=== PATIENT | female | born 1990 | race Caucasian/White ===

== ENCOUNTER 2017-07-21 21:03 | Emergency (ER) | payer OTHER | END 2017-07-22 00:45 | disposition home or self-care (01) | LOC: PHED 21:03 | DX: O26.892 Other specified pregnancy related conditions, second trimester (principal); J11.1 Influenza due to unidentified influenza virus with other respiratory manifestations; R06.2 Wheezing; M47.892 Other spondylosis, cervical region; L94.9 Localized connective tissue disorder, unspecified; Z3A.23 23 weeks gestation of pregnancy | CPT/HCPCS: 71045; 93005; 99284 ==

== ENCOUNTER 2017-11-11 09:41 | Inpatient (IN) | payer OTHER ==
[2017-11-11] VITALS (12 sets, daily range): BP systolic 109–123; BP diastolic 67–83; PULSE 74–100; RESP 16–18; TEMP 98–98.4; O2SAT 95–99
[~2017-11-11 09:41] MED LIST: ALBU6.7H INH; DEXT1CAP5 PO; OSEL75 PO; PREN29TA PO
[2017-11-11] MEDS ORDERED: ceFAZolin 2 GM in NS 100 ML IV SCH (11:30)
[2017-11-11] MEDS ORDERED: CITRIC ACID-SODIUM CITRATE LIQ 30 ML UDC PO SCH (11:30)
[2017-11-11] MEDS ORDERED: LACTATED RINGER'S 1000 ML IV SCH (11:30)
[2017-11-11] MEDS ORDERED: LACTATED RINGER'S 1000 ML IV ONE (11:30)
[2017-11-11] MEDS ORDERED: DEXAMETHASONE SOD PHOS 4 MG/ML VIAL ONE (11:40)
[2017-11-11] MEDS ORDERED: ROPIVACAINE 0.5% PF INJ 30 ML VIAL ONE ×2 (11:40)
[2017-11-11 11:49] LABS: BASOPHIL % 0.4 % (0.0-2.0); EOSINOPHIL % 0.4 % (0.0-4.0); HEMATOCRIT 35.2 % (35.0-46.0); HEMOGLOBIN 11.6 GM/DL (11.6-15.3); LYMPH % 20.8 % (9.0-44.0); LYMPHOCYTE # 1.7 TH/MM3 (1.0-4.8); MEAN CELL VOLUME 83.9 FL (80.0-100.0); MEAN CORPUSCULAR HEMOGLOBIN 27.7 PG (27.0-34.0); MEAN CORPUSCULAR HGB CONC 33.1 % (32.0-36.0); MEAN PLATELET VOLUME 9.9 FL (7.0-11.0); MONO % 6.3 % (0.0-8.0); MONOCYTE # 0.5 TH/MM3 (0-0.9); NEUT % 72.1 % (16.0-70.0); PLATELET COUNT 203 TH/MM3 (150-450); RED BLOOD COUNT 4.19 MIL/MM3 (4.00-5.30); RED CELL DISTRIBUTION WIDTH 14.6 % (11.6-17.2); WHITE BLOOD COUNT 8.3 TH/MM3 (4.0-11.0)
[2017-11-11] MEDS ORDERED: SUCCINYLCHOLINE CHLORIDE 100 MG/5 ML SYRINGE IV PUSH ONE (12:00)
[2017-11-11] MEDS ORDERED: DEXAMETHASONE SOD PHOS 4 MG/ML VIAL IV ONE (12:00)
[2017-11-11] MEDS ORDERED: ceFAZolin INJ 1,000 MG VIAL IV ONE (12:00)
[2017-11-11] MEDS ORDERED: PROPOFOL 200 MG/20 ML AMP IV ONE (12:00)
[2017-11-11] MEDS ORDERED: LIDOCAINE HCL 1% PF 5 ML SYRINGE OTHER ONE (12:00)
[2017-11-11] MEDS ORDERED: ONDANSETRON HCL 4 MG/2 ML VIAL IV ONE (12:00)
[2017-11-11] MEDS ORDERED: OXYTOCIN 10 UNIT/ML AMP IV ONE (12:00)
[2017-11-11] MEDS ORDERED: LACTATED RINGER'S 1000 ML INJ 1,000 ML IV ONE (12:00)
[2017-11-11] MEDS ORDERED: KETOROLAC TROMETHAMINE 30 MG/ML (IVP) VIAL IV PUSH ONE (12:00)
[2017-11-11 12:05] LABS: BACTERIA, URINE OCC /hpf; BILIRUBIN, URINE NEG (NEG); BLOOD, URINE NEG (NEG); GLUCOSE,URINE NEG (NEG); KETONE, URINE NEG (NEG); NITRITE,URINE NEG (NEG); PH, URINE 6.5 (5.0-8.5); URINE COLOR LIGHT-YELLOW (YELLW/STRAW); URINE LEUKOCYTE ESTERASE NEG (NEG)
[2017-11-11] MEDS ORDERED: fentaNYL CITRATE 250 MCG/5 ML AMP ONE (13:51)
[2017-11-11] MEDS ORDERED: ACETAMINOPHEN 1000 MG/100 ML 100 ML IV ONE (13:51)
--- NOTE | 2017-11-11 13:56 | MH ---
cc: Guanako Gonzalez MD DATE OF ADMISSION: 11/11/2017 PREOPERATIVE DIAGNOSIS(ES): 1. Intrauterine at 39+ weeks. 2. Previous section. 3. 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 HISTORY OF PRESENT ILLNESS: Ms. Cunningham is a 27-year-old white female, para 1-0-0-1, whose last menstrual period and dates put her at 39+ weeks. She presents for repeat section. She has been followed by neurology and they have specifically said not to do a spinal anesthesia because of the Arnold-Chiari syndrome. She has been brought in for a repeat section under general anesthesia today. PAST OB HISTORY: She is para 1-0-0-1. She had a with general anesthesia, without any complications. PAST MACHINE TOOL REBUILDER HISTORY: Negative. Her Pap smear in 03/2017 was negative. PAST SURGICAL HISTORY: Remarkable for a section. PAST MEDICAL HISTORY: Remarkable for Arnold-Chiari syndrome. SOCIAL HISTORY: She has never smoked. She is a nondrinker. She is . She does not take drugs. FAMILY HISTORY: Grandfather had oral cancer. Multiple family members had melanoma. ALLERGIES: ASPIRIN. MEDICATIONS: vitamins. REVIEW OF SYSTEMS: No headache, no shortness of breath, no chest pain, pressure. The baby is moving well. Denies any rupture of membranes, bleeding, no regular uterine contractions. PHYSICAL EXAMINATION: GENERAL: Well-developed, well-nourished female, in no acute distress. CHEST: Clear to auscultation. CARDIOVASCULAR: The heart has a regular rate and rhythm without murmur. ABDOMEN: Gravid, nontender. The scar is well healed. PELVIC: The pelvic examination is deferred. EXTREMITIES: No clubbing, cyanosis, or edema. ASSESSMENT AND PLAN: 1. Intrauterine at 39+ weeks. 2. History of previous for repeat now. 3. Arnold-Chiari syndrome without spina bifida. We will go ahead and put her to sleep and have the baby. Her GBS is negative. Her sugar test and all her labs are negative. Her blood type is O positive. Guanako Gonzalez MD RJV/TL , 01:39 PM , 01:55 PM
[2017-11-11] MEDS ORDERED: diphenhydrAMINE HCL 50 MG/ML VIAL IV PUSH PRN (15:15)
[2017-11-11] MEDS ORDERED: OXYTOCIN 30 UNITS-500ML PREMIX 500 ML IV ONE (15:15)
[2017-11-11] MEDS ORDERED: SODIUM CHLORIDE 0.9% FLUSH 10 ML FLUSH IV FLUSH PRN (15:15)
[2017-11-11] MEDS ORDERED: ONDANSETRON ODT 4 MG TAB PO PRN (15:15)
[2017-11-11] MEDS ORDERED: diphenhydrAMINE HCL 25 MG CAP PO PRN (15:15)
[2017-11-11] MEDS ORDERED: NALOXONE HCL 0.4 MG/ML AMP IV PUSH PRN (15:15)
[2017-11-11] MEDS ORDERED: ACETAMINOPHEN 325 MG TAB PO PRN (15:15)
[2017-11-11] MEDS ORDERED: HYDROmorphone HCL PF 2 MG/ML VIAL ONE ×2 (15:17→15:45)
--- NOTE | 2017-11-11 15:26 | PD.OP ---
Operative Report Date of Surgery: November 11, 2017 Preoperative Diagnosis: Postoperative Diagnosis: Procedure: Repeat Low Transverse Section with Bilateral Tubal Ligation Anesthesia: General Surgeon: Guanako Gonzalez MD Immigration Manager(s): Dagmar Chopra Resident Surgeon: Bibiana Sheth MD Operation and Findings: PREOPERATIVE DIAGNOSIS: 1. Intrauterine at 39 weeks gestation. 2. Arnold Chiari Malformation. 3. Desires permanent sterilization. POSTOPERATIVE DIAGNOSIS: 1. Intrauterine at 39 weeks gestation. 2. Arnold Chiari Malformation. 3. Desires permanent sterilization. OPERATION: 1. Repeat low transverse section. 2. Bilateral tubal ligation. ANESTHESIA: General. SURGEON: Guanako Gonzalez MD. COSURGEON: Bibiana Sheth MD R3. FINDINGS: A normal female with APGARS of 8 and 9, weight 3310g. The uterus was normal. The tubes were normal in length and caliber, the ovaries were normal. The cul-de-sac was normal. COMPLICATIONS: None. COUNTS: The counts were correct. ESTIMATED BLOOD LOSS: 600 cc. FLUIDS: Crystalloids. FINDINGS: The patient tolerated the procedure well, went to the Recovery Room in good condition. PROCEDURE: She was taken to the operating room, identified by name band and verbally and given a general anesthetic. She was immediately prepped with Betadyne and draped in the usual sterile manner for a section. A time out was taken and once agreed upon a Pfannenstiel incision was made over the old scar. The incision was taken down to the fascia, the fascia was taken off the rectus muscle by blunt and sharp dissection. The rectus muscles were spread bluntly and the peritoneum was entered under direct vision without difficulty. The incision was extended with care to avoid the urinary bladder. The bladder blade was placed and the bladder flap was created in the usual fashion. A transverse incision along the lower uterine segment was made and bluntly extended. The head was delivered with gentle fundal pressure without difficulty and then the rest of the body was delivered without difficulty. The baby appeared vigorous upon delivery and cord clamping was delayed for 45 seconds. The baby was then handed to the baby nurse. A cord gas was obtained. Cord blood was obtained and the placental was delivered manually. The uterus was curettage twice with the wet lap. The uterine incision was then repaired with the 0 Vicryl in a running fashion, the second layer imbricating the first with excellent results. Hemostasis was achieved with several figure of eight sutures and Manuel. Intercede was also applied to prevent adhesions. Hemostasis was excellent. Attention was then turned to the tubal ligation. The left fallopian tube was gasped with a Mya and a small incision was made in the mesosalpinx and a portion of the tube was tied off with zero chromic catgut and a small piece of tube was removed and sent for pathologic evaluation. This was repeated on the contralateral side. The cul-de-sac was irrigated and cleaned of blood and debris and the uterus was delivered back into the abdomen. All incisions and pedicles were then inspected and were hemostatic. The rectus muscle was reapproximated with 0 Vicryl in a running fashion. The fascia was repaired with 0 Vicryl in a running fashion and the subcutaneous tissue was irrigated. The skin was repaired with 4-0 Monocryl in a subcuticular manner. The incision was covered with a pressure dressing. The patient tolerated the procedure well and went to the recovery room in good condition. All counts were correct. Bibiana Sheth MD R3 November 11, 2017 15:26
[2017-11-11] MEDS ORDERED: MEPERIDINE HCL 50 MG/ML VIAL ONE (16:52)
[2017-11-11] MEDS ORDERED: OXYTOCIN 30 UNITS-500ML PREMIX 500 ML IV PRN (20:15)
[2017-11-11] MEDS ORDERED: SODIUM CHLORIDE 0.9% FLUSH 10 ML FLUSH IV FLUSH SCH (21:00)
[2017-11-11] MEDS ORDERED: ceFAZolin 2 GM/DEX PREMIX 50 ML IV SCH (22:00)
[2017-11-11] MEDS ORDERED: CEFAZOLIN INJ 2,000 MG in SODIUM CHLORIDE 0.9% INJ 100 ML IV SCH (22:00)
[2017-11-11] MEDS: LACTATED RINGER'S 1000 ML INJ 1,000 ML IV SCH (22:01)
[2017-11-12] VITALS (10 sets, daily range): BP systolic 105–119; BP diastolic 57–73; PULSE 70–88; RESP 16–18; TEMP 98–98.6; O2SAT 97–98
[2017-11-12] MEDS: PCA - TOTAL MG MORPHINE DELIVERED PER SHIFT SCH ×3 (00:20→12:10)
[2017-11-12] MEDS: MORPHINE SULFATE 30 MG/30 ML PCA IV SCH ×2 (00:32→07:03)
[2017-11-12 05:58] LABS: BASOPHIL % 0.3 % (0.0-2.0); EOSINOPHIL % 0.2 % (0.0-4.0); HEMATOCRIT 32.4 % (35.0-46.0); HEMOGLOBIN 10.9 GM/DL (11.6-15.3); LYMPHOCYTE # 2.4 TH/MM3 (1.0-4.8); MEAN CELL VOLUME 82.9 FL (80.0-100.0); MEAN CORPUSCULAR HEMOGLOBIN 27.9 PG (27.0-34.0); MEAN CORPUSCULAR HGB CONC 33.6 % (32.0-36.0); MONO % 7.9 % (0.0-8.0); MONOCYTE # 0.9 TH/MM3 (0-0.9); NEUT % 70.6 % (16.0-70.0); PLATELET COUNT 200 TH/MM3 (150-450); RED BLOOD COUNT 3.91 MIL/MM3 (4.00-5.30); RED CELL DISTRIBUTION WIDTH 14.6 % (11.6-17.2); WHITE BLOOD COUNT 11.3 TH/MM3 (4.0-11.0)
[2017-11-12] MEDS ORDERED: ceFAZolin 2 GM PREMIX 50 ML IV SCH (06:00)
[2017-11-12] MEDS ORDERED: KETOROLAC TROMETHAMINE 30 MG/ML (IVP) VIAL IV PUSH ONE (07:15)
--- NOTE | 2017-11-12 07:29 | HHI.OB ---
Subjective Remarks POD day # 1. No acute issues overnight, vitals are stable, patient remains afebrile. Incision not draining. Decreasing lochia and pain. Patient is ambulating without difficulty and voiding independently. She is feeding the baby via breast. She denies any nausea or vomiting and has a good appetite. Positive flatus/bowel movement. She denies any calf pain, chest pain, or shortness of breath. Objective Vitals/I&O Vital Signs Date Time Temp Pulse Resp B/P (MAP) Pulse Ox O2 Delivery O2 Flow Rate FiO2 11/12/17 07:03 18 11/12/17 06:00 18 11/12/17 05:49 16 11/12/17 04:26 16 11/12/17 04:00 98.0 73 18 119/71 (87) 97 11/12/17 03:00 17 11/12/17 00:44 17 11/12/17 00:32 17 11/12/17 00:20 17 11/12/17 00:00 98.2 70 18 110/69 (83) 98 11/11/17 22:18 18 11/11/17 22:00 18 11/11/17 20:00 98.0 74 18 120/80 (93) 98 11/11/17 17:20 98.4 86 18 121/81 (94) 96 11/11/17 16:40 115/68 (84) 11/11/17 16:40 81 16 97 11/11/17 16:25 76 16 120/70 (87) 96 11/11/17 16:10 99 11/11/17 16:10 81 16 123/83 (96) 11/11/17 15:55 87 16 123/72 (89) 99 11/11/17 15:40 79 17 98 11/11/17 15:40 118/69 (85) 11/11/17 15:16 16 109/67 (81) 11/11/17 15:15 98.4 100 95 11/11/17 12:00 16 Result Diagram: 11/12/17 0551 Objective Remarks GENERAL: Well-nourished, well-developed patient. CARDIOVASCULAR: Regular rate and rhythm without murmurs, gallops, or rubs. RESPIRATORY: Breath sounds equal bilaterally. No accessory muscle use. ABDOMEN/GI: Abdomen soft, non-tender, bowel sounds present. Incision: Clean, dry and intact. Fundus: Firm, non-tender at umbilicus. GENITOURINARY: Light to moderate bleeding. EXTREMITIES: No cyanosis or edema, non-tender, without signs of DVT. Medications and IVs Current Medications Medications (Trade) Dose Ordered Sig/Yusuf Route Start Time Stop Time Status Last Admin Lactated Ringer's 1,000 ml @ 100 mls/hr Q10H IV 11/11/17 20:07 11/12/17 16:06 11/11/17 22:01 Oxytocin 500 ml @ 100 mls/hr UNSCH X1 PRN IV 11/11/17 20:15 11/12/17 20:14 (NS Flush) 2 ml BID IV FLUSH 11/11/17 21:00 (NS Flush) 2 ml UNSCH PRN IV FLUSH 11/11/17 15:15 (Mylicon Chew) 80 mg QID PRN PO 11/11/17 15:15 (Tylenol) 650 mg Q6H PRN PO 11/11/17 15:15 (Motrin) 600 mg Q6H PRN PO 11/11/17 15:15 (Percocet 5-325 Mg) 1 tab Q4H PRN PO 11/11/17 15:15 (Percocet 5-325 Mg) 2 tab Q4H PRN PO 11/11/17 15:15 (M-M-R Ii Inj) 0.5 ml ONCE ONCE SQ 11/12/17 16:00 11/12/17 16:01 (Boostrix Inj) 0.5 ml ONCE ONCE IM 11/12/17 16:00 11/12/17 16:01 (Zofran Odt) 4 mg Q6H PRN PO 11/11/17 15:15 (Narcan Inj) 0.4 mg UNSCH PRN IV PUSH 11/11/17 15:15 (Benadryl Inj) 25 mg Q6H PRN IV PUSH 11/11/17 15:15 (Benadryl) 25 mg Q6H PRN PO 11/11/17 15:15 (Morphine 1 Mg/ ml CUSTOMER RELATIONS CONSULTANT) 30 mg UNSCH IV 11/11/17 15:15 11/12/17 07:03 CUSTOMER RELATIONS CONSULTANT Dosage Infused (Pha) 1 Q8HR .XX 11/11/17 15:15 11/12/17 06:00 (Toradol Inj) 15 mg ONCE ONCE IV PUSH 11/12/17 07:15 11/12/17 07:16 UNV Assessment/Plan Assessment and Plan 27 y/o female who is POD # 1 s/p and bilateral tubal ligation. -Continue routine care. -Hgb stable at 10.9 - Goal to DC CUSTOMER RELATIONS CONSULTANT pump today and encourage ambulation -Percocet Motrin PRN pain. -Encouraged OOB. Advised pelvic rest for 6 wks. Will need a f/u appt. in 1 wk for incision check. - Discharge home in 1-[address] MD R3 November 12, 2017 07:29
[2017-11-12] MEDS: LACTATED RINGER'S 1000 ML INJ 1,000 ML IV SCH (08:18)
[2017-11-12] MEDS: oxyCODONE/ACETAMINOPHEN 5 MG/325 MG TAB PO PRN ×3 (12:30→21:51)
[2017-11-12] MEDS: IBUPROFEN 600 MG TAB PO PRN ×2 (12:34→17:45)
[2017-11-12] MEDS ORDERED: MEASLES, MUMPS, RUBELLA VACCINE 0.5 ML VIAL SQ ONE (16:00)
[2017-11-12] MEDS ORDERED: DIPHTH/TETANUS/ACEL PERTUSSIS (BOOSTER) 0.5 ML VIAL/PFS IM ONE (16:00)
--- NOTE | 2017-11-12 16:51 | HHI.DCPOC ---
Discharge Care Plan Diagnosis: (1) S/P tubal ligation (2) S/P repeat low transverse Your Health Problems Are: delivery Report Symptoms to Your Doctor -Temperature above 100.5 degrees -Redness, of incision or excessive or foul smelling drainage -Unusual pain or calf pain -Increased vaginal bleeding -Painful or difficulty urinating -Feelings of extreme sadness or anxiety after 2 weeks Goals to Promote Your Health * To prevent worsening of your condition and complications * To maintain your health at the optimal level Directions to Meet Your Goals Take your medications as prescribed Follow your dietary instruction Follow activity as directed Ensure plenty of rest for recovery Drink fluids for hydration Keep your appointments as scheduled Take your immunizations and boosters as scheduled If your symptoms worsen call your PCP, if no PCP go to Urgent Care Center or Emergency Room Smoking is Dangerous to Your Health. Avoid second hand smoke Call the 24-hour crisis hotline for domestic abuse at Christy Daniels November 12, 2017 16:51
[2017-11-13] MEDS: IBUPROFEN 600 MG TAB PO PRN (01:05)
[2017-11-13] MEDS: oxyCODONE/ACETAMINOPHEN 5 MG/325 MG TAB PO PRN ×6 (01:26→21:25)
[2017-11-13] MEDS: SIMETHICONE 80 MG CHEWABLE TAB PO PRN ×3 (01:34→17:26)
[2017-11-13] MEDS ORDERED: IBUP1TAB5 PO (08:24)
[2017-11-13] MEDS ORDERED: OXYC1TAB63 PO (08:24)
[2017-11-13] MEDS: DOCUSATE SODIUM 50 MG/SENNA 8.6 MG TAB PO SCH ×2 (09:09→21:25)
[2017-11-13] MEDS: IBUPROFEN 400 MG TAB PO SCH ×4 (09:10→21:26)
--- NOTE | 2017-11-13 09:21 | HHI.OB ---
Subjective Post Operative Day: 2 Objective Vitals/I&O Vital Signs Date Time Temp Pulse Resp B/P (MAP) Pulse Ox O2 Delivery O2 Flow Rate FiO2 11/12/17 20:00 116/57 (76) 11/12/17 20:00 98.6 88 18 97 11/12/17 16:10 76 108/70 (83) 11/12/17 16:10 98.1 18 11/12/17 12:30 98.0 11/12/17 12:10 18 Result Diagram: 11/12/17 0551 Objective Remarks GENERAL: Well-nourished, well-developed patient. CARDIOVASCULAR: Regular rate and rhythm without murmurs, gallops, or rubs. RESPIRATORY: Breath sounds equal bilaterally. No accessory muscle use. ABDOMEN/GI: Abdomen soft, non-tender, bowel sounds present. Incision: Clean, dry and intact. Fundus: Firm, non-tender at umbilicus. GENITOURINARY: Light to moderate bleeding. EXTREMITIES: No cyanosis or edema, non-tender, without signs of DVT. Medications and IVs Current Medications Medications (Trade) Dose Ordered Sig/Yusuf Route Start Time Stop Time Status Last Admin (NS Flush) 2 ml BID IV FLUSH 11/11/17 21:00 (NS Flush) 2 ml UNSCH PRN IV FLUSH 11/11/17 15:15 (Mylicon Chew) 80 mg QID PRN PO 11/11/17 15:15 11/13/17 09:09 (Tylenol) 650 mg Q6H PRN PO 11/11/17 15:15 (Percocet 5-325 Mg) 1 tab Q4H PRN PO 11/11/17 15:15 11/13/17 09:09 (Percocet 5-325 Mg) 2 tab Q4H PRN PO 11/11/17 15:15 11/13/17 01:26 (Zofran Odt) 4 mg Q6H PRN PO 11/11/17 15:15 (Narcan Inj) 0.4 mg UNSCH PRN IV PUSH 11/11/17 15:15 (Benadryl Inj) 25 mg Q6H PRN IV PUSH 11/11/17 15:15 (Benadryl) 25 mg Q6H PRN PO 11/11/17 15:15 (Morphine 1 Mg/ ml PRODUCT SAFETY HEAD) 30 mg UNSCH IV 11/11/17 15:15 11/12/17 07:03 PRODUCT SAFETY HEAD Dosage Infused (Pha) 1 Q8HR .XX 11/11/17 15:15 11/12/17 12:10 (Motrin) 400 mg Q4H PO 11/13/17 09:00 11/13/17 09:10 (Nelida-Colace) 1 tab BID PO 11/13/17 09:00 11/13/17 09:09 Assessment/Plan Problem List: (1) S/P repeat low transverse ICD Codes: Z98.891 - History of uterine scar from previous surgery (2) S/P tubal ligation ICD Codes: Z98.51 - Tubal ligation status (3) Anemia ICD Codes: D64.9 - Anemia, unspecified Assessment and Plan 27 y/o female who is POD # 2s/p and bilateral tubal ligation. pt doing well pain well managed with oral stanley medication pt passing gas, stool softeners ordered bonding and baby routine care Discharge Planning dc home tomorrow Christy Daniels November 13, 2017 09:21
[2017-11-13 21:08] VITALS: BP 103/59; PULSE 76; RESP 18; TEMP 98.1
[2017-11-14] MEDS: SIMETHICONE 80 MG CHEWABLE TAB PO PRN ×2 (00:11→10:06)
[2017-11-14] MEDS: IBUPROFEN 400 MG TAB PO SCH ×3 (01:32→10:05)
[2017-11-14] MEDS: oxyCODONE/ACETAMINOPHEN 5 MG/325 MG TAB PO PRN ×3 (01:33→10:06)
[2017-11-14 08:00] VITALS: BP 100/61; PULSE 78; RESP 16; TEMP 98; O2SAT 98
--- NOTE | 2017-11-14 09:24 | HHI.DS ---
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 spina bifida or hydrocephalus Status: Acute (2) S/P repeat low transverse ICD Codes: Z98.891 - History of uterine scar from previous surgery (3) S/P tubal ligation ICD Codes: Z98.51 - Tubal ligation status Delivery Date: November 11, 2017 : Repeat : Female Brief History 39 weeks Arnold Chiari malformation previous c section desires sterilization Hospital Course repeat c section under general anesthesia bilateral tubal ligation routine post op care Pt Condition on Discharge: Good Discharge Disposition: Discharge Home Discharge Instructions Diet Instructions: As Tolerated, No Restrictions Additional Diet Instructions: Drink at least 8 - 16 oz bottles of water a day Activities You Can Perform: Shower Only-No Bath Activities to Avoid: Prolonged Standing, Strenuous Activity, Sexual Activity Additional Activity Instruc.: No driving until off pain medications Do not lift anything heavier than your baby in an infant carrier Follow up Referrals: PASTRY SUPERVISOR - 1 Week @ [facility] [place] New Medications: Ibuprofen (Ibuprofen) 400 Mg Tab 400 MG PO Q4HR for cramping, #30 TAB Oxycodone HCl/Acetaminophen (Oxycodone-Acetaminophen 5-325) 5 Mg-325 Mg Tablet 1-2 TAB PO Q4H PRN for moderate pain, #31 TAB Continued Medications: Vit-Iron Carbonyl ( Plus Iron 29-1 mg) 1 Tab Tab 1 TAB PO DAILY for Nutritional Supplement, #30 TAB 0 Refills Discontinued Medications: Albuterol 6.7 GM Inh (Proventil Hfa 6.7 GM Inh) 90 Mcg/Act Aer 1 PUFF INH Q4H PRN for SHORTNESS OF BREATH, #1 INHALER 0 Refills Dextromethorphan-Guaifenesin (Robitussin Cough Chest Congestion) 10-200 Mg Cap 1 CAP PO Q4H PRN for CHEST CONGESTION AND/OR COUGH, CAP 0 Refills Oseltamivir (Tamiflu) 75 Mg Cap 75 MG PO BID for Mgmt Viral Infection for 5 Days, #10 CAP 0 Refills Christy Daniels November 14, 2017 09:24
[2017-11-14] MEDS: DOCUSATE SODIUM 50 MG/SENNA 8.6 MG TAB PO SCH (10:06)
== END 2017-11-14 13:32 | disposition home or self-care (01) | DRG 765 ==
LOC: H2EB 09:41 → H1EA 16:33
PROVIDERS: ADMIT Obstetrics & Gynecology; ATTEND Obstetrics & Gynecology
PROC: 10D00Z1 Extraction of Products of Conception, Low, Open Approach (ICD-10-PCS; principal; 2017-11-11)
PROC: 0UB70ZZ Excision of Bilateral Fallopian Tubes, Open Approach (ICD-10-PCS; 2017-11-11)
DX: O34.211 Maternal care for low transverse scar from previous cesarean delivery (principal); O99.354 Diseases of the nervous system complicating childbirth; Q07.00 Arnold-Chiari syndrome without spina bifida or hydrocephalus; D64.9 Anemia, unspecified; O99.02 Anemia complicating childbirth; Z37.0 Single live birth; Z30.2 Encounter for sterilization; Z3A.39 39 weeks gestation of pregnancy
CPT/HCPCS: 59025; 80307; 81001; 82805; 85025; 86850; 86900; 86901; 88302; 90715; C1765; J0131; J0330; J0690; J1100; J1170; J1885; J2175; J2270; J2405; J2590; J2795; J3010; J7120